=== PATIENT | male | born 1965 | race African-American/Black ===

== ENCOUNTER 2018-12-09 11:42 | Emergency (ER) | payer SELFPAY ==
[~2018-12-09] VITALS: Ht 170.2 cm; Wt 68.0 kg
[2018-12-09] MEDS ORDERED: HYDROCODONE/ACETAMINOPHEN 5/325MG TABLET PO ONE (12:15)
[2018-12-09] MEDS ORDERED: KETOROLAC 60MG/2ML VIAL IM ONE (12:15)
[2018-12-09] MEDS ORDERED: IBUPROFEN 600MG TABLET PO ONE (13:00)
[2018-12-09 13:19] VITALS: BP 123/67
== END 2018-12-09 14:52 | disposition home or self-care (01) ==
LOC: ER 11:42
DX: S01.511A Laceration without foreign body of lip, initial encounter (principal); S86.911A Strain of unspecified muscle(s) and tendon(s) at lower leg level, right leg, initial encounter; M54.5 Low back pain; V89.2XXA Person injured in unspecified motor-vehicle accident, traffic, initial encounter; Y93.89 Activity, other specified; Y92.89 Other specified places as the place of occurrence of the external cause; Y99.8 Other external cause status
CPT/HCPCS: 29515; 99283; J1885; Z7610